=== PATIENT | female | born 1985 | race Caucasian/White ===

== ENCOUNTER 2017-07-31 19:20 | Emergency (ER) | payer MEDICAID, OTHER ==
[2017-07-31 19:33] VITALS: RESP 18; TEMP 98.2
--- NOTE | 2017-07-31 20:12 | EDPHY ---
H & P Time Seen by Provider: 07/31/17 19:38 HPI/ROS: This patient works at [employer] and tripped on a Pallet striking her anterior knee/pretibial region against a wood palate with the resultant laceration/wound. She reports mild to moderate pain and moderate bleeding that slowed with direct pressure prior to arrival. Her father drove her in by private vehicle for further evaluation and treatment. She denies any other injuries. ROS: Neuro: No numbness or tingling Musculoskeletal: No underlying bony pain or difficulty walking Integumentary: No other skin injuries. 5 point ROS is otherwise negative Smoking Status: Never smoked Physical Exam: Physical Exam Vital signs are normal. General: No acute distress HEENT: Atraumatic. Eyes: Pupils equal and react to light. Extraocular motions are intact. Lungs: No respiratory distress. Cardiac: Brisk capillary refill is intact throughout. Pulses are 2+ and symmetric in the affected extremity. Skin: No rash or pallor. There is a 2.5 cm round deep abrasion/skin avulsion to the pretibial region just inferior to the left patella. There is 1 skin flap appears viable, triangle shaped 2 cm in length covering part of this wound. The medial aspect it joins the avulsed tissue and lateral aspect a joins healthy skin there is a nonviable small skin flap in the center of this wound 8 mm x 8 mm no significant dirt contamination on direct inspection. Neuro: Alert with no sensorimotor deficits to the affected extremity. Constitutional: Initial Vital Signs Temperature (C) 36.8 C 07/31/17 19:32 Heart Rate 108 H 07/31/17 19:32 Respiratory Rate 18 07/31/17 19:32 Blood Pressure 124/100 H 07/31/17 19:32 O2 Sat (%) 95 07/31/17 19:32 O2 Delivery Mode Room Air Allergies/Adverse Reactions: cefprozil [From Cefzil] Allergy (Verified 07/31/17 19:31) Home Medications: Medication Instructions Recorded Implanon 04/02/16 MDM/Departure - MDM Procedures: The wound is 2 cm in length. The wound was copiously irrigated with saline. The wound was explored for foreign bodies and none were found. The wound was prepped and draped in the normal sterile fashion. The wound was anesthetized using a 50 50 mix of 0.5% Marcaine and 1% plain lidocaine-27 gauge needle, 2 mL with good effect. The edges were reapproximated using 4 0 Prolene on a PC 3 needle-4 running sutures with good hemostasis and cosmesis. The patient tolerated the procedure well. There were no complications. A dressing was applied by our Afshin edmondson. ED Course/Re-evaluation: Discussion: Soft tissue wound and small laceration without evidence of bony injury or other complicating factors. Immunocompetent patient - Depart Disposition: Home, Routine, Self-Care Clinical Impression: Avulsion, skin Leg laceration Qualifiers: Encounter type: initial encounter Laterality: left Qualified Code(s): S81.812A - Laceration without foreign body, left lower leg, initial encounter Condition: Good Instructions: Care For Your Stitches (ED) Additional Instructions: Diagnosis: Leg laceration Plan: Keep the wound clean and dry for the next 2 days, then clean daily with warm soapy water and apply Tegaderm or similar dressing. Ibuprofen Tylenol if needed for pain Return for suture removal in 10-12 days Return sooner if he develops redness, discharge or other concerns for infection. Referrals: Kimberli Isbell MD [Primary Care Provider] - As per Instructions
[2017-07-31 20:29] VITALS: BP 127/87; PULSE 100; O2SAT 96
== END 2017-07-31 20:29 | disposition home or self-care (01) ==
LOC: CED 19:20
PROC: 0HQKXZZ Repair Right Lower Leg Skin, External Approach (ICD-10-PCS; principal; 2017-07-31)
DX: S81.812A Laceration without foreign body, left lower leg, initial encounter (principal); W22.8XXA Striking against or struck by other objects, initial encounter; Y92.512 Supermarket, store or market as the place of occurrence of the external cause; Y99.0 Civilian activity done for income or pay; Y93.89 Activity, other specified

== ENCOUNTER → 2017-08-05 | Outpatient (CLI) | payer OTHER, MEDICAID | LOC: FCPNEURO 23:17 | PROVIDERS: ATTEND Internal Medicine Sleep Medicine | DX: Z13.89 Encounter for screening for other disorder (principal) ==